=== PATIENT | female | born 1970 | race Caucasian/White ===

== ENCOUNTER 2025-05-25 10:40 | Emergency (ER) | payer BC ==
[2025-05-25 10:48] VITALS: TEMP 98.2; BMI 24.1
[2025-05-25] MEDS: SODIUM CHLORIDE 0.9% 500 ML INFUS.BAG IV ONE (11:35)
[2025-05-25 12:05] LABS: ABSOLUTE IMMATURE GRANULOCYTES 0.01 x10^3/uL (0.0-0.031); BASOPHILS # 0.05 x10^3/uL (0.01-0.08); EOSINOPHIL % 0.7 % (0.7-5.8); EOSINOPHILS # 0.04 x10^3/uL (0.04-0.36); HEMATOCRIT 37.2 % (34.1-44.9); MCHC 34.9 g/dl (32.2-35.5); MEAN CELL VOLUME 91.9 fl (79.4-94.8); MEAN PLT VOLUME 8.6 fl (9.4-12.3); MONOCYTE # 0.79 x10^3/uL (0.24-0.86); MONOCYTE % 13.7 % (4.7-12.5); PLATELET COUNT 372 x10^3/uL (182-369); RDW 11.4 % (12.3-16.6)
[2025-05-25 12:17] LABS: ALBUMIN 4.5 g/dl (3.4-5.0); BILIRUBIN,TOTAL 0.6 mg/dl (0.2-1); CALCIUM 9.6 mg/dl (8.5-10.1); CREATININE 0.7 mg/dl (0.6-1.3); EPITHELIAL CELLS 0-5 /hpf; TOT PROT 7.3 g/dl (6.4-8.2); URIC ACID 6.4 mg/dl (2.6-7.2)
[2025-05-25 12:57] VITALS: BP 129/68; PULSE 83; RESP 16
[2025-05-27 20:04] LABS: HCV DIAGNOSTIC IN-HOUSE W/RFLX NON-REACTIVE (NONREACTIVE)
[2025-05-27 20:20] LABS: HIV INTERPRETATION NEGATIVE (NEGATIVE)
== END 2025-05-25 13:30 | disposition home or self-care (01) ==
LOC: FER 10:40
DX: E87.1 Hypo-osmolality and hyponatremia (principal); I10 Essential (primary) hypertension; F10.90 Alcohol use, unspecified, uncomplicated; M25.512 Pain in left shoulder
CPT/HCPCS: 36415; 80053; 81003; 81015; 83930; 83935; 84300; 84443; 84484; 84550; 85025; 86803; 87389; 93005; 99284-25